=== PATIENT | female | born 1950 | race Hispanic/Latino ===

== ENCOUNTER 2019-09-23 04:08 | Emergency (ER) | payer BC, MEDICARE ==
[~2019-09-23] VITALS: Ht 154.9 cm; Wt 76.7 kg
[~2019-09-23 04:08] MED LIST: ZOCOR20 MG PO
--- OUTSIDE RECORDS SUMMARY | 2019-09-23 04:12 | XMS REPORT ---
Author Author [facility] Organization [facility] Address Unknown Phone Unavailable Care Team Providers [facility] Intern Name Role Phone Unavailable Unavailable Payers Payer Name Policy Type Policy Number Effective Date Expiration D ate Problems This patient has no known problems. Allergies, Adverse Reactions, Alerts Allergy Name Allergy Type Status Severity Reaction(s) Onset Date Inacti ve Date Treating Clinician Comments No Known Allergies DA Active U 2015-04-29 00:00:00 Medications This patient has no known medications.
[2019-09-23] MEDS ORDERED: ONDANSETRON HCL INJ 2MG/ML 2ML 2 MG/ML VIAL IV STA (04:42)
[2019-09-23] MEDS ORDERED: MORPHINE SULFATE 2 MG/ML SYR 1ML IV STA (04:42)
[2019-09-23 04:57] LABS: CLARITY,URINE SL CLOUDY (CLEAR); COLOR,URINE YELLOW (YELLOW); LEUKOCYTE ESTERASE ,URINE NEGATIVE (NEGATIVE); NITRITE,URINE NEGATIVE (NEGATIVE); PROTEIN,URINE DIPSTICK TRACE (NEGATIVE)
[2019-09-23 04:58] LABS: BILIRUBIN,URINE 1+ (NEGATIVE); KETONES,URINE NEGATIVE (NEGATIVE); URINE UROBILINOGEN 0.2 mg/dL (0.2 - 1)
[2019-09-23 05:05] LABS: BASOPHILS # (AUTO) 0.1 (0.0-0.1); BASOPHILS % 0.6 % (0.0-1.0); EOSINOPHILS # (AUTO) 0.1 (0.0-0.4); HEMATOCRIT 40.1 % (34.2-44.1); HEMOGLOBIN 12.9 g/dL (12.0-16.0); LYMPHOCYTES # (AUTO) 1.6 (1.0-3.2); LYMPHOCYTES % 15.3 % (18.0-39.1); MEAN CORPUSCULAR HEMOGLOBIN 27.8 pg (28-32); MEAN CORPUSCULAR HGB CONC 32.2 g/dL (31-35); MEAN CORPUSCULAR VOLUME 86.4 fL (81-99); MONOCYTES # (AUTO) 0.8 (0.2-0.8); MONOCYTES % 7.7 % (4.4-11.3); NEUTROPHILS # (AUTO) 7.7 (2.1-6.9); NEUTROPHILS % 74.9 % (38.7-80.0); PLATELET COUNT 274 x10e3/uL (140-360); RED BLOOD COUNT 4.64 x10e6/uL (3.6-5.1); RED CELL DISTRIBUTION WIDTH 12.8 % (11.7-14.4)
[2019-09-23 05:07] LABS: BACTERIA,URINE FEW /HPF; EPITHELIAL CELLS,URINE FEW /LPF; MUCUS,URINE MANY (RARE)
[2019-09-23 05:22] LABS: ALANINE AMINOTRANSFERASE 11 IU/L (0-55); ALBUMIN 4.1 g/dL (3.5-5.0); ALBUMIN/GLOBULIN RATIO 1.2 (0.8-2.0); ALKALINE PHOSPHATASE 34 IU/L (40-150); BLOOD UREA NITROGEN 9 mg/dL (7-26); BUN/CREATININE RATIO 14 (6-25); CARBON DIOXIDE 26 mmol/L (22-29); CHLORIDE 105 mmol/L (98-107); CREATININE, SERUM 0.66 mg/dL (0.57-1.11); EST GLOMERULAR FILTRATION RATE > 60 ML/MIN (60-); GLUCOSE 162 mg/dL (74-118); SODIUM 141 mmol/L (136-145)
[2019-09-23 05:23] LABS: AMYLASE 125 U/L (25-125); LIPASE 193 U/L (8-78)
[2019-09-23] MEDS ORDERED: SODIUM CHLORIDE 0.9% 1000ML 1,000 ML IV ONE (05:30)
[2019-09-23] MEDS ORDERED: SODIUM CHLORIDE 0.9% 50ML 50 ML ONE (06:24)
[2019-09-23] MEDS ORDERED: IOPAMIDOL 370 MG/ML 200 ML INFUS..BTL INJ ONE (06:25)
--- NOTE | 2019-09-23 06:47 | Diagnostic Imaging Report ---
EXAM: CT Abdomen and Pelvis WITH contrast INDICATION: ^LOWER ABD PAIN ^[id number] ^0600 ^Y COMPARISON: None. TECHNIQUE: Abdomen and pelvis were scanned utilizing a multidetector helical scanner from the lung base to the pubic symphysis after administration of IV contrast. Coronal and sagittal reformations were obtained. Routine protocol was performed. Scan was performed when during portal venous phase. IV CONTRAST: 100 mL of Isovue 370 ORAL CONTRAST: Water COMPLICATIONS: None RADIATION DOSE: Total DLP: 475 mGy*cm Estimated effective dose: (DLP x 0.015 x size factor) mSv CTDIvol has been reviewed. It is below the limits set by the Radiation Protocol Committee (RPC). Dose modulation, iterative reconstruction, and/or weight based adjustment of the mA/kV was utilized to reduce the radiation dose to as low as reasonably achievable. FINDINGS: LINES and TUBES: None. LOWER THORAX: Unremarkable HEPATOBILIARY: No focal hepatic lesions. No biliary ductal dilation. GALLBLADDER: Surgically absent. SPLEEN: No splenomegaly. PANCREAS: No focal masses or ductal dilatation. ADRENALS: No adrenal nodules. KIDNEYS/URETERS: Kidneys enhance symmetrically. No hydronephrosis. No cystic or solid mass lesions. No stones. GI TRACT: Advanced colonic diverticulosis. Subtle wall thickening of the mid sigmoid colon centered at a prominent diverticulum (image 71), with mild adjacent mesenteric fat stranding. No evidence of bowel obstruction. No obvious bowel mass. PELVIC ORGANS/BLADDER: The uterus is surgically absent. LYMPH NODES: No lymphadenopathy. VESSELS: Unremarkable. PERITONEUM / RETROPERITONEUM: No free air or fluid. BONES: Unremarkable. SOFT TISSUES: Unremarkable. IMPRESSION: Mild acute uncomplicated sigmoid diverticulitis. Signed by: Alok Guerra MD on 09/23/2019 6:43 AM
[2019-09-23 06:58] VITALS: BP 113/49
== END 2019-09-23 08:14 | disposition home or self-care (01) ==
LOC: ER 04:08
DX: R30.0 Dysuria (principal); R10.30 Lower abdominal pain, unspecified; M54.5 Low back pain; K57.32 Diverticulitis of large intestine without perforation or abscess without bleeding; I10 Essential (primary) hypertension; E11.9 Type 2 diabetes mellitus without complications; E78.5 Hyperlipidemia, unspecified
CPT/HCPCS: 36415; 74177; 80053; 81001; 82150; 83690; 85025; 87086; 99284; J2270; J2405; J7030; Q9967

== ENCOUNTER 2022-11-07 20:58 | Observation (INO) | payer MEDICARE ==
[~2022-11-07] VITALS: Ht 154.9 cm; Wt 76.7 kg
[2022-11-07] MEDS ORDERED: ONDANSETRON HCL INJ 2MG/ML 2ML 2 MG/ML VIAL IV STA (21:10)
[2022-11-07 21:14] LABS: BASOPHILS # (AUTO) 0.1 (0.0-0.1); BASOPHILS % 0.6 % (0.0-1.0); EOSINOPHILS # (AUTO) 0.2 (0.0-0.4); EOSINOPHILS % 2.1 % (0.0-6.0); HEMATOCRIT 40.3 % (34.2-44.1); HEMOGLOBIN 13.1 g/dL (12.0-16.0); LYMPHOCYTES # (AUTO) 3.6 (1.0-3.2); LYMPHOCYTES % 43.3 % (18.0-39.1); MEAN CORPUSCULAR HEMOGLOBIN 27.9 pg (28-32); MEAN CORPUSCULAR HGB CONC 32.5 g/dL (31-35); MEAN CORPUSCULAR VOLUME 85.7 fL (81-99); MONOCYTES # (AUTO) 0.8 (0.2-0.8); NEUTROPHILS # (AUTO) 3.6 (2.1-6.9); NEUTROPHILS % 43.3 % (38.7-80.0); PLATELET COUNT 274 x10e3/uL (140-360); RED CELL DISTRIBUTION WIDTH 12.9 % (11.7-14.4)
[2022-11-07] MEDS ORDERED: SODIUM CHLORIDE FLUSH 10 ML SYR IV PRN (21:15)
[2022-11-07] MEDS ORDERED: Morphine 4mg INJECTION 4 MG/ML INJ IV ONE (21:15)
[2022-11-07] MEDS ORDERED: ONDANSETRON HCL INJ 2MG/ML 2ML 2 MG/ML VIAL ONE (21:17)
[2022-11-07] MEDS ORDERED: Morphine 4mg INJECTION 4 MG/ML INJ ONE (21:17)
[2022-11-07 21:29] LABS: ALBUMIN 4.3 g/dL (3.5-5.0); ALBUMIN/GLOBULIN RATIO 1.3 (0.8-2.0); ANION GAP 13.9 mmol/L (8-16); CALCIUM 9.7 mg/dL (8.4-10.2); CREATININE, SERUM 0.81 mg/dL (0.57-1.11); POTASSIUM 3.9 mmol/L (3.5-5.1)
[2022-11-07] MEDS ORDERED: IOPAMIDOL 370 MG/ML 100 ML INFUS..BTL INJ ONE (21:57)
[2022-11-07] MEDS ORDERED: SODIUM CHLORIDE FLUSH 10 ML SYR INJ PRN (23:45)
[2022-11-07] MEDS ORDERED: ASPIRIN 81 MG CHEW TAB PO ONE (23:45)
[2022-11-08] VITALS (17 sets, daily range): BP systolic 107–148; BP diastolic 50–89; PULSE 61–70; RESP 16–20; TEMP 98–98.9; O2SAT 95–100
[2022-11-08] MEDS ORDERED: ONDANSETRON HCL INJ 2MG/ML 2ML 2 MG/ML VIAL IV PRN (01:15)
[2022-11-08 06:49] LABS: BASOPHILS # (AUTO) 0.1 (0.0-0.1); BASOPHILS % 0.7 % (0.0-1.0); EOSINOPHILS # (AUTO) 0.1 (0.0-0.4); EOSINOPHILS % 1.5 % (0.0-6.0); HEMOGLOBIN 11.7 g/dL (12.0-16.0); LYMPHOCYTES # (AUTO) 1.7 (1.0-3.2); LYMPHOCYTES % 24.5 % (18.0-39.1); MEAN CORPUSCULAR HEMOGLOBIN 27.8 pg (28-32); MEAN CORPUSCULAR HGB CONC 31.6 g/dL (31-35); MEAN CORPUSCULAR VOLUME 87.9 fL (81-99); MONOCYTES # (AUTO) 0.7 (0.2-0.8); MONOCYTES % 10.2 % (4.4-11.3); NEUTROPHILS # (AUTO) 4.3 (2.1-6.9); NEUTROPHILS % 62.5 % (38.7-80.0); PLATELET COUNT 229 x10e3/uL (140-360); RED BLOOD COUNT 4.21 x10e6/uL (3.6-5.1); RED CELL DISTRIBUTION WIDTH 12.8 % (11.7-14.4)
[2022-11-08 07:16] LABS: ALBUMIN 3.6 g/dL (3.5-5.0); ANION GAP 10.1 mmol/L (8-16); CALCIUM 8.9 mg/dL (8.4-10.2); CREATININE, SERUM 0.63 mg/dL (0.57-1.11); POTASSIUM 4.1 mmol/L (3.5-5.1)
[2022-11-08 07:17] LABS: ALBUMIN/GLOBULIN RATIO 1.3 (0.8-2.0)
[2022-11-08] MEDS ORDERED: METFORMIN HCL500 MG PO (07:23)
[2022-11-08] MEDS ORDERED: OXYBUTYNIN CHLO10 MG PO (07:23)
[2022-11-08] MEDS ORDERED: GABAPENTIN100 MG PO (07:23)
[2022-11-08] MEDS ORDERED: ATORVASTATIN CA20 MG PO (07:23)
[2022-11-08] MEDS ORDERED: CLONAZEPAM0.5 MG PO (07:23)
[2022-11-08] MEDS ORDERED: LINZESS145 MCG PO (07:23)
[2022-11-08] MEDS ORDERED: LOSARTAN POTASS25 MG PO (07:23)
[2022-11-08] MEDS ORDERED: CLONAZEPAM 0.5 MG TAB PO PRN (09:30)
[2022-11-08] MEDS: ASPIRIN 325 MG TAB EC PO SCH (09:59)
[2022-11-08] MEDS: SODIUM CHLORIDE 0.9% 1000ML 1,000 ML IV SCH ×2 (09:59→21:39)
[2022-11-08 10:01] LABS: CHOL/HDL RATIO 2.6 (3.0-3.6)
[2022-11-08] MEDS ORDERED: HEPARIN SOD/SOD CHLORIDE 2,000 ML ONE (10:13)
[2022-11-08] MEDS ORDERED: LIDOCAINE HCL 2% LOCAL 20 ML VIAL ONE (10:13)
[2022-11-08] MEDS ORDERED: IOPAMIDOL 370 MG/ML 100 ML INFUS..BTL INJ ONE (10:14)
[2022-11-08] MEDS ORDERED: NITROGLYCERIN/D5W 200 MCG/ML 250 ML ONE (10:14)
[2022-11-08] MEDS ORDERED: SODIUM CHLORIDE 0.9% 1000ML 1,000 ML ONE (10:14)
[2022-11-08] MEDS ORDERED: CLOPIDOGREL BISULFATE 75 MG TAB PO ONE (10:15)
[2022-11-08] MEDS ORDERED: LOSARTAN POTASSIUM 25 MG TAB PO SCH (10:15)
[2022-11-08 10:23] LABS: THYROID STIMULATING HORMONE 3.416 uIU/mL (0.350-4.940)
[2022-11-08] MEDS ORDERED: MIDAZOLAM HCL 2 MG/2 ML VIAL ONE (10:27)
[2022-11-08] MEDS ORDERED: FENTANYL CITRATE/PF 100MCG/2 ML INJ ONE (10:27)
[2022-11-08] MEDS ORDERED: ATORVASTATIN 20 MG TAB PO SCH (21:00)
[2022-11-08] MEDS ORDERED: SIMVASTATIN 20 MG TAB PO SCH (21:00)
[2022-11-08] MEDS ORDERED: GABAPENTIN 100 MG CAP PO SCH (21:00)
[2022-11-09 01:00] VITALS: BP 110/91; PULSE 67; RESP 17; TEMP 98.5; O2SAT 98
[2022-11-09 04:53] VITALS: BP 111/67; PULSE 73; RESP 17; TEMP 98.2; O2SAT 96
[2022-11-09] MEDS: SODIUM CHLORIDE 0.9% 1000ML 1,000 ML IV SCH (06:04)
[2022-11-09 08:33] VITALS: BP 130/61; PULSE 71; RESP 20; TEMP 98.2; O2SAT 97
[2022-11-09 08:52] VITALS: BP 130/61; PULSE 71; RESP 20; TEMP 98.2; O2SAT 97
[2022-11-09] MEDS ORDERED: LINACLOTIDE 145 MCG CAPSULE PO SCH (09:00)
[2022-11-09] MEDS ORDERED: OXYBUTYNIN CHLORIDE XL 5 MG TAB PO SCH (09:00)
[2022-11-09] MEDS ORDERED: METOPROLOL SUCCINATE 25 MG TAB XL PO SCH (09:00)
[2022-11-09] MEDS: ASPIRIN 325 MG TAB EC PO SCH (09:20)
== END 2022-11-09 10:10 | disposition home or self-care (01) ==
LOC: ER 21:04 → ERHOLD 23:37 → MED/SURG3 11-08 04:26
PROVIDERS: ADMIT Internal Medicine; ATTEND Internal Medicine
DX: R07.9 Chest pain, unspecified (principal); R94.39 Abnormal result of other cardiovascular function study; I25.10 Atherosclerotic heart disease of native coronary artery without angina pectoris; I10 Essential (primary) hypertension; E78.5 Hyperlipidemia, unspecified; E11.9 Type 2 diabetes mellitus without complications; Z82.49 Family history of ischemic heart disease and other diseases of the circulatory system; Z20.822 Contact with and (suspected) exposure to COVID-19; Z79.84 Long term (current) use of oral hypoglycemic drugs; Z79.899 Other long term (current) drug therapy; Z68.31 Body mass index [BMI] 31.0-31.9, adult; Z87.440 Personal history of urinary (tract) infections
CPT/HCPCS: 36415 ×3; 71045; 71260; 80053 ×2; 80061; 82550; 82948 ×2; 83880; 84443; 84484 ×2; 85025 ×2; 93005; 93458; 94760; 96361; 99284; C1769; C1887; G0378 ×3; J2001; J2250; J2270; J2405; J7030 ×2; Q9967 ×2; U0002; 99152

== ENCOUNTER 2023-12-11 04:48 | Emergency (ER) | payer MEDICARE ==
[~2023-12-11] VITALS: Ht 154.9 cm; Wt 76.7 kg
[~2023-12-11 04:48] MED LIST changes: +ATORVASTATIN CA20 MG PO; +CLONAZEPAM0.5 MG PO; +GABAPENTIN100 MG PO; +LINZESS145 MCG PO; +LOSARTAN POTASS25 MG PO; +METFORMIN HCL500 MG PO; +OXYBUTYNIN CHLO10 MG PO
[2023-12-11] MEDS ORDERED: SODIUM CHLORIDE 0.9% 0 ML ONE (06:12)
[2023-12-11] MEDS ORDERED: IOPAMIDOL 370 MG/ML 100 ML INFUS..BTL INJ ONE (06:13)
[2023-12-11] MEDS: ONDANSETRON HCL INJ 2MG/ML 2ML 2 MG/ML VIAL IV STA ×2 (06:26→07:39)
[2023-12-11] MEDS: SODIUM CHLORIDE 0.9% 1000ML 1,000 ML IV ONE (06:26)
[2023-12-11] MEDS: MECLIZINE HCL 12.5 MG TAB PO SCH (06:27)
[2023-12-11] MEDS ORDERED: LORAZEPAM 0.5 MG TAB PO ONE (08:45)
[2023-12-11] MEDS: ACETAMINOPHEN 325 MG TAB PO ONE (09:04)
[2023-12-11 09:06] VITALS: PULSE 80; RESP 16; TEMP 98.4; O2SAT 97
[2023-12-11] MEDS ORDERED: ONDANSETRON ODT4 MG PO (09:44)
[2023-12-11] MEDS ORDERED: DRAMAMINE25 M1 PO (09:46)
== END 2023-12-11 10:03 | disposition home or self-care (01) ==
LOC: FSED 05:09
DX: R42 Dizziness and giddiness (principal); S20.212A Contusion of left front wall of thorax, initial encounter; I72.0 Aneurysm of carotid artery; R51.9 Headache, unspecified; E11.65 Type 2 diabetes mellitus with hyperglycemia; I10 Essential (primary) hypertension; E78.5 Hyperlipidemia, unspecified
CPT/HCPCS: 70496; 70498; 71101; 80048; 85025; 99284; J2405; J7030; J8597; Q9967; J7050